=== PATIENT | female | born 1965 | race Caucasian/White ===

== ENCOUNTER 2017-04-28 09:04 | Emergency (ER) | payer BC ==
--- NOTE | 2017-04-28 09:26 | UC ---
Back Pain HPI - HPI Summary HPI Summary: 51 year old female with complaint of back pain. "My back is bothering me bad. I carried a bucket of water the other day but it seems to be causing some problems." Constant low back pain, intermittent left lower back pain with right groin pain (history of sciatica on that side) with cramps down both legs "especially the calf area", and numbness and tingling in the right foot for five days; worsened after hoarse back riding last night. Chronic right lower back pain and sciatica, but not the groin pain and cramping. Other symptoms started one day after carrying a bucket of water. Pain somewhat alleviated by Tylenol. Pain aggravated by work. Last xray and MRI "not for a long time" ~ 1999. Patient has a chiropractor appointment scheduled in four days. Patient is a legal officer. PCP Sofia. [ End ] - History of Current Complaint Stated Complaint: BACK PAIN Time Seen by Provider: 04/28/17 09:25 Hx Obtained From: Patient Onset/Duration: Gradual Onset Timing: Intermittent Severity Initially: Moderate Severity Currently: Mild Aggravating Factor(s): Movement Alleviating Factor(s): Rest - Risk Factors Cauda Equina Risk Factors: Negative Epidural Abscess Risk Factors: Negative - Allergies/Home Medications Allergies/Adverse Reactions: Allergies Allergy/AdvReac Type Severity Reaction Status Date / Time No Known Allergies Allergy Verified 04/28/17 09:27 Home Medications: Home Medications Acetaminophen [Acetaminophen Extra Stren] 1,000 mg PO Q6H PRN 04/28/17 [History Confirmed 04/28/17] Probiotic Product [Probiotic] 1 tab PO DAILY 04/28/17 [History Confirmed ] PMH/Surg Hx/FS Hx/Imm Hx Previously Healthy: Yes - Family History Known Family History: Positive: Hypertension - Social History Occupation: Employed Full-time - [employer] [place] With Family Review of Systems Musculoskeletal: Arthralgia - back pain All Other Systems Reviewed And Are Negative: Yes Physical Exam Triage Information Reviewed: Yes Appearance: Well-Appearing, No Pain Distress, Well-Nourished Vital Signs Reviewed: Yes Eye Exam: Normal ENT Exam: Normal Dental Exam: Normal Neck exam: Normal Neck: Positive: 1 Respiratory Exam: Normal Cardiovascular Exam: Normal Musculoskeletal Exam: Normal Musculoskeletal: Positive: Strength Intact, ROM Intact, Other: - L4-5 paraspinal tenderness to palpation, no sp tenderness, neg SLR. FROM B/l LE. no step offs. (+) piriformis tenderness b/l Neurological Exam: Normal Psychological Exam: Normal Skin Exam: Normal Back Pain Course/Dx - Course Course Of Treatment: Xray performed today and shows no acute concerns with chronic changes. Advised to start PT as well as chiro, refer to Ortho if Sx persist . She also has had some mild depressive Sx and denies SI/HI and will look for CBT / therapists in the future and d/w PCP next month at her OV - Differential Dx/Diagnosis Differential Diagnosis/HQI/PQRI: Herniated Disc, Strain, Sprain Provider Diagnoses: Sciatica / Lumbar Strain Discharge - Discharge Plan Condition: Good Disposition: HOME Prescriptions: Cyclobenzaprine TAB* [Flexeril 10 MG TAB*] 10 mg PO BID PRN #10 tab PRN Reason: Spasms Patient Education Materials: Sciatica (ED), Lower Back Exercises (ED) Referrals: Josr Pederson MD [Medical Doctor] - (Orthopedic referral is any concerns and no improvement. ) Additional Instructions: Please consider physical therapy as well and you have been given a handout / referral for Physical Therapy Your xray today did not show any acute concerns. When you take and if you take the muscle relaxer cyclobenzaprine please do not operate heavy machinery or drive
[2017-04-28 09:53] VITALS: BP 130/74
--- NOTE | 2017-04-28 10:21 | RAD ---
Indication: Low back pain radiating to the legs following lifting injury 4 days ago. Comparison: No relevant prior exams available on the [facility] PACS for comparison. Technique: AP and lateral views lumbar sacral spine. Report: Slight LEFT convex curve below the threshold for scoliosis. Negative for spondylolisthesis at any level. Mild anterior column compression deformity at L1 appears chronic. No evidence for acute or subacute fracture. Multilevel degenerative spondylosis and facet joint osteoarthritis most prominent at L4-L5 and L5-S1 with severe disc space narrowing. Unremarkable paraspinal soft tissue contours. IMPRESSION: 1. Mild old anterior column L1 compression fracture. 2. Advanced degenerative spondylosis and facet joint osteoarthritis.
== END 2017-04-28 10:15 | disposition home or self-care (01) ==
LOC: UCCORT 09:04
DX: S39.012A Strain of muscle, fascia and tendon of lower back, initial encounter (principal); M54.30 Sciatica, unspecified side; X58.XXXA Exposure to other specified factors, initial encounter; Y92.9 Unspecified place or not applicable
CPT/HCPCS: 72100; 99202; G0463